=== PATIENT | male | born 1990 | race Two or more races ===

== ENCOUNTER 2023-08-31 18:44 | Emergency (ER) | payer OTHER ==
[~2023-08-31] VITALS: Ht 193 cm; Wt 104.3 kg
[2023-08-31] MEDS ORDERED: ACETAMINOPHEN 500 MG GEL..CAP PO ONE (19:45)
[2023-08-31] MEDS ORDERED: METHYLPREDNISOLONE SOD SUCC 125 MG VIAL IV ONE (19:45)
[2023-08-31] MEDS ORDERED: IPRATROPIUM/ALBUTEROL SULFATE 3 ML AMPUL.NEB IH SCH (20:00)
[2023-08-31] MEDS ORDERED: GUAIFENESIN/DEXTROMETHORPHAN 100 MG/5 ML ML PO ONE (20:00)
[2023-08-31 20:58] LABS: HEMATOCRIT 41.8 % (39.0-48.0); HEMOGLOBIN 14.3 g/dL (13-16.00); MEAN CELL VOLUME 80.7 fL (80.0-100.00); MEAN CORPUSCULAR HEMOGLOBIN 27.7 pg (27.00-32.0); MEAN CORPUSCULAR HGB CONC 34.3 g/dl (32.0-36.0); PLATELET COUNT 278 K/uL (150-450); RED BLOOD COUNT 5.18 M/uL (4.00-6.00); RED CELL DISTRIBUTION WIDTH 13.9 % (11.5-14.5)
[2023-08-31 21:05] LABS: URINE APPEARANCE Clear; URINE BILIRRUBIN Negative (NEGATIVE); URINE BLOOD Negative; URINE COLOR Yellow; URINE GLUCOSE Negative (NEGATIVE); URINE LEUKOCYTE Negative; URINE NITRATE Negative; URINE PROTEIN Negative (NEGATIVE)
[2023-08-31 21:08] LABS: URINE WBC 3.5 uL (0.0-23.2)
[2023-08-31 21:22] LABS: URINE EPITHELIAL CELLS 0.6 uL (0.0-38.8)
[2023-08-31] MEDS ORDERED: MEDROLPACK PO (22:35)
[2023-08-31] MEDS ORDERED: ZITHROMAX500 MG PO (22:35)
[2023-08-31] MEDS ORDERED: IPRATROPIU0.2 MG/1 M IH (22:35)
[2023-08-31] MEDS ORDERED: TUSSIN DM SYRU118 ML PO (22:35)
[2023-08-31] MEDS ORDERED: ALBUTEROL1.25 MG/3 IH (22:35)
== END 2023-08-31 22:43 ==
LOC: ER 18:44
PROVIDERS: Nurse Practitioner Family
DX: J06.9 Acute upper respiratory infection, unspecified (principal); Z91.013 Allergy to seafood; Z20.822 Contact with and (suspected) exposure to COVID-19